=== PATIENT | female | born 2000 | race Caucasian/White ===

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

== ENCOUNTER 2020-03-25 16:20 | Emergency (ER) | payer OTHER ==
[2020-03-25 16:44] VITALS: BP 130/87; PULSE 71; RESP 18; TEMP 98.5
[2020-03-25] MEDS ORDERED: IBUPROFEN 600 MG TAB PO STA (16:54)
--- NOTE | 2020-03-25 17:01 | ED ---
Abdominal Pain HPI - General Chief Complaint: Abdominal Pain Stated Complaint: Abd Pain Time Seen by Provider: 03/25/20 16:48 Source: patient Mode of arrival: ambulatory Limitations: no limitations - History of Present Illness Initial Comments: Patient is a 20-year-old female presenting to emergency Department with complaints of lower abdominal cramping that has been intermittent for months but seems to be worse today. Patient states she has been on the patch for control for the last 6 months, she has been on a new patch for the last week. P mercynain does not believe she is . Patient states she's been having some nausea with this cramping, no vomiting or diarrhea. She denies any fever or chills. She denies any specific area of pain, just generalized lower abdominal cramping. She denies increase in frequency or dysuria. She has no vaginal discharge, no vaginal bleeding. She has no further complaints at this time. Upon arrival to the ER her vitals are stable. - Related Data Home Medications Medication Instructions Recorded Confirmed Pnv 11/Iron Fum/Folic Acid/Om3 1 cap PO DAILY 09/27/18 10/11/19 [Virt-Barrie Dha Softgel] Previous Rx's Medication Instructions Recorded Ibuprofen [Motrin] 600 mg PO Q6HR PRN #30 tab 10/12/19 Sulfamethox-Tmp 800-160Mg [Bactrim 1 each PO Q12HR 5 Days #9 tab 03/25/20 Ds] Allergies Allergy/AdvReac Type Severity Reaction Status Date / Time cefuroxime axetil Allergy Swelling Verified 03/25/20 16:44 [From Ceftin] Review of Systems ROS Statement: Those systems with pertinent positive or pertinent negative responses have been documented in the HPI. ROS Other: All systems not noted in ROS Statement are negative. Past Medical History Past Medical History: No Reported History Additional Past Medical History / Comment(s): OB history: First was a vaginal delivery. This is her second . Blood type O+, antibody is n egative, rubella immune, hepatitis B negative, GBS negative, HIV nonreactive, RPR nonreactive. Further details of her obstetric history above. History of Any Multi-Drug Resistant Organisms: None Reported Past Surgical History: Tonsillectomy Additional Past Surgical History / Comment(s): right eye surgery 2005 Past Anesthesia/Blood Transfusion Reactions: No Reported Reaction Past Psychological History: Bipolar Smoking Status: Current every day smoker Past Alcohol Use History: None Reported Past Drug Use History: None Reported - Past Family History Mother Family Medical History: Congestive Heart Failure (CHF), Diabetes Mellitus General Exam - General Exam Comments Initial Comments: GENERAL: Patient is well-developed and well-nourished. Patient is nontoxic and in no acute distress. HEAD: Atraumatic, normocephalic. EYES: Pupils equal round and reactive to light, extraocular movements intact, sclera anicteric, conjunctiva are normal. Eyelids were unremarkable. ENT: TMs normal, nares patent, oropharynx clear without exudates. Moist mucous membranes. NECK: Normal range of motion, supple without lymphadenopathy or JVD. LUNGS: Unlabored respirations. Breath sounds clear to auscultation bilaterally and equal. No wheezes rales or rhonchi. HEART: Regular rate and rhythm without murmurs, rubs or gallops. ABDOMEN: Mild discomfort with palpation of the suprapubic area, lower abdomen, no specific area pain. Soft, normoactive bowel sounds. No guarding, no rebound. No masses appreciated. : Deferred MUSCULOSKELETAL: Normal extremities with adequate strength and normal range of motion, no pitting or edema. No clubbing or cyanosis. NEUROLOGICAL: Patient is alert and oriented x 3. Motor and sensory are also intact. Symmetrical smile. Normal speech, normal gait. PSYCH: Normal mood, normal affect. SKIN: Warm, Dry, normal turgor, no rashes or lesions noted. Limitations: no limitations Course Vital Signs 03/25/20 16:40 Temperature 98.5 F Pulse Rate 71 Respiratory 18 Rate Blood Pressure 130/87 O2 Sat by Pulse 98 Oximetry Medical Decision Making - Medical Decision Making Patient is a 20-year-old female here for lower abdominal cramping that has been intermittent for the last 4-5 months, worse the last few days. Her vitals are stable, she is been afebrile. No specific area of abdominal pain just cramping. Patient's urine does show signs of UTI with multiple wbc's, urine culture is p ending. Urine hCG is not detected. I discussed these findings with the patient. Patient states she has had a history of UTIs in the past and this does feel similar. Patient does have an ALLERGY to Ceftin, I will start her on Bactrim, first dose given in the ER. I will send the rest for prescription to the pharmacy. Patient can follow up with her PCP if symptoms persist. Return parameters were discussed with the patient she verbalized understanding. - Lab Data Lab Results 03/25/20 03/25/20 Range/Units 16:51 16:51 Urine Color Yellow Urine Appearance Cloudy H (Clear) Urine pH 6.5 (5.0-8.0) Ur Specific [place] 1.028 (1.001-1.035) Urine Protein 3+ H (Negative) Urine Glucose (UA) Negative (Negative) Urine Ketones Negative (Negative) Urine Blood Negative (Negative) Urine Nitrite Negative (Negative) Urine Bilirubin Negative (Negative) Urine Urobilinogen 2.0 (<2.0) mg/dL Ur Leukocyte Esterase Negative (Negative) Urine RBC 6 H (0-5) /hpf Urine WBC 36 H (0-5) /hpf Ur Squamous Epith Cells 6 H (0-4) /hpf Urine Bacteria Rare H (None) /hpf Hyaline Casts 12 H (0-2) /lpf Urine Mucus Many H (None) /hpf Urine HCG, Qual Not Detected (Not Detectd) Disposition Clinical Impression: UTI (urinary tract infection), Bilateral lower abdominal cramping Disposition: HOME SELF-CARE Condition: Stable Instructions (If sedation given, give patient instructions): Urinary Tract Infection in Women (ED) Additional Instructions: Please return to the Emergency Department if symptoms worsen or any other concerns. Urinalysis today shows a UTI. Please take antibiotic as prescribed. May use ibuprofen for discomfort. Follow-up with your PCP. Prescriptions: Sulfamethox-Tmp 800-160Mg [Bactrim Ds] 1 each PO Q12HR 5 Days #9 tab Is patient prescribed a controlled substance at d/c from ED?: No Referrals: Reji Benjamin DO [Primary Care Provider] - 1-2 days
[2020-03-25 17:10] LABS: Appearance,Urine Cloudy (Clear); Bacteria,Urine Rare /hpf; Bilirubin,Urine Negative (Negative); Blood,Urine Negative (Negative); Color,Urine Yellow; Glucose,Urine (UA) Negative (Negative); Hyaline Casts,Urine 12 /lpf (0-2); Ketones,Urine Negative (Negative); Leukocyte Esterase,Urine Negative (Negative); Mucus,Urine Many /hpf; Nitrite,Urine Negative (Negative); PH, Urine 6.5 (5.0-8.0); Protein,Urine 3+ (Negative); RBC,Urine 6 /hpf (0-5); Specific Gravity,Urine 1.028 (1.001-1.035); Squamous Epithelial Cell,Urine 6 /hpf (0-4); WBC,Urine 36 /hpf (0-5)
[2020-03-25] MEDS ORDERED: SULFAMETHOX-TMP 800-160MG 1 EACH TAB PO STA (17:29)
== END 2020-03-25 17:37 | disposition home or self-care (01) ==
LOC: EC 16:20
DX: N39.0 Urinary tract infection, site not specified (principal); R10.32 Left lower quadrant pain; R10.31 Right lower quadrant pain; F17.200 Nicotine dependence, unspecified, uncomplicated; Z88.1 Allergy status to other antibiotic agents
CPT/HCPCS: 81001; 81025; 87086; 99284

== ENCOUNTER → 2020-12-03 | Outpatient (CLI) | payer OTHER ==
--- NOTE | 2020-12-03 12:47 | US ---
EXAMINATION TYPE: Transabdominal DATE OF EXAM: 12/03/2020 7:18 AM COMPARISON: NONE CLINICAL HISTORY: Z36.87 confirm dates. Dates EXAM PERFORMED: Transabdominal (TA) EXAM MEASUREMENTS: GESTATIONAL AGE / DATING Physician Established: Not yet established Dates by LMP: (9 weeks/3 days) EDC: 07/05/2021 Dates by First Scan: No previous this is first scan Dates by Current Scan for: ( 9 weeks/4 days) EDC: 07/04/2021 MATERNAL ANATOMY Uterus: 11.0 x 6.9 x 5.8 cm Right Ovary: 2.6 x 1.8 x 1.4 cm Left Ovary: 3.0 x 2.4 x 1.5 cm Post CDS / Adnexa: no free fluid Presence of free fluid: no Presence of corpus luteal cyst: no Presence of subchorionic bleed: no GESTATION / SURVEY CRL: 2.8 cm (9 weeks/4 days) MSD: seen, not measured Yolk Sac (normal less than 6mm): 3.6 mm Heart Rate: 168 bpm Rhythm: Normal IUP: Viable IUP Age Appropriate Anatomy Cord Insertion: Visualized Limbs: Visualized Date of LMP: 09/28/2020, Beta HcG (if available): Not available at this time Single live IUP measuring 9 weeks 4 days. IMPRESSION: 1. Single intrauterine gestation estimated at 9 weeks 4 days gestation based on crown-rump length. Ca rdiac activity measuring 168 bpm was observed during study.
== END | disposition home or self-care (01) ==
LOC: RADUSWWP 06:56
PROVIDERS: ATTEND Obstetrics & Gynecology
DX: Z3A.09 9 weeks gestation of pregnancy (principal)
CPT/HCPCS: 76801

== ENCOUNTER 2020-12-05 13:35 | Emergency (ER) | payer OTHER ==
[2020-12-05] MEDS ORDERED: SODIUM CHLORIDE 0.9% 2,000 ML IV STA (14:00)
[2020-12-05] MEDS ORDERED: METOCLOPRAMIDE 5 MG/ML 2 ML VIAL IVP STA (14:00)
[2020-12-05 14:24] LABS: Basophils # (A) 0.1 k/uL (0-0.2); Basophils % (A) 1 %; Eosinophils # (A) 0.3 k/uL (0-0.7); Eosinophils % (A) 3 %; HCT 40.3 % (34.0-46.0); HGB 13.9 gm/dL (11.4-16.0); Lymphocytes # (A) 1.7 k/uL (1.0-4.8); Lymphocytes % (A) 15 %; MCH 31.8 pg (25.0-35.0); MCHC 34.4 g/dL (31.0-37.0); MCV 92.6 fL (80.0-100.0); Mean Platelet Volume 9.3; Monocytes # (A) 0.6 k/uL (0-1.0); Monocytes % (A) 5 %; Neutrophils # (A) 8.9 k/uL (1.3-7.7); Neutrophils % (A) 76 %; Platelet Count 216 k/uL (150-450); RBC 4.36 m/uL (3.80-5.40); RDW 13.2 % (11.5-15.5); WBC 11.8 k/uL (4.0-11.0)
[2020-12-05 14:32] LABS: Appearance,Urine Cloudy (Clear); Bacteria,Urine Rare /hpf; Bilirubin,Urine Negative (Negative); Blood,Urine Negative (Negative); Color,Urine Yellow; Glucose,Urine (UA) Negative (Negative); Ketones,Urine Negative (Negative); Leukocyte Esterase,Urine Large (Negative); Mucus,Urine Many /hpf; Nitrite,Urine Negative (Negative); Protein,Urine 1+ (Negative); RBC,Urine 3 /hpf (0-5); Specific Gravity,Urine 1.025 (1.001-1.035); Squamous Epithelial Cell,Urine 15 /hpf (0-4); WBC,Urine 26 /hpf (0-5)
[2020-12-05 14:33] LABS: ALT 24 U/L (4-34); AST 21 U/L (14-36); African American GFR (CKD) >90 (>60 ml/min/1.73 sqM); Albumin 4.7 g/dL (3.5-5.0); Alkaline Phosphatase 59 U/L (38-126); Anion Gap 12 mmol/L; Blood Urea Nitrogen 10 mg/dL (7-17); Calcium 9.4 mg/dL (8.4-10.2); Carbon Dioxide 20 mmol/L (22-30); Chloride 106 mmol/L (98-107); Glucose 88 mg/dL (74-99); Non-African American GFR(CKD) >90 (>60 ml/min/1.73 sqM); Potassium 4.1 mmol/L (3.5-5.1); Sodium 138 mmol/L (137-145); Total Bilirubin 0.3 mg/dL (0.2-1.3); Total Protein 7.5 g/dL (6.3-8.2)
--- NOTE | 2020-12-05 14:58 | ED ---
General Adult HPI - General Chief complaint: Nausea/Vomiting/Diarrhea Stated complaint: 10Wks Preg/Nausea/Vomiting Time Seen by Provider: 12/05/20 13:47 Source: patient, RN notes reviewed Mode of arrival: ambulatory Limitations: no limitations - History of Present Illness Initial comments: 20-year-old female presents emergency apartment with chief complaint of nausea vomiting early . Patient is A0 states that she's been vomiting last few days. Patient denies any abdominal pain or complaints. She has seen her [employer]. She's had a prior ultrasound. Patient denies any other complaints. - Related Data Home Medications Medication Instructions Recorded Confirmed Pnv 11/Iron Fum/Folic Acid/Om3 1 cap PO DAILY 09/27/18 10/11/19 [Virt-Barrie Dha Softgel] Previous Rx's Medication Instructions Recorded Ibuprofen [Motrin] 600 mg PO Q6HR PRN #30 tab 10/12/19 Sulfamethox-Tmp 800-160Mg [Bactrim 1 each PO Q12HR 5 Days #9 tab 03/25/20 Ds] Amoxicillin/Potassium Clav 1 tab PO Q12HR #14 tab 12/05/20 [Augmentin 875-125 Tablet] Allergies Allergy/AdvReac Type Severity Reaction Status Date / Time cefuroxime axetil Allergy Swelling Verified 12/05/20 13:41 [From Ceftin] Review of Systems ROS Statement: Those systems with pertinent positive or pertinent negative responses have been documented in the HPI. ROS Other: All systems not noted in ROS Statement are negative. Past Medical History Past Medical History: No Reported History Additional Past Medical History / Comment(s): OB history: First was a vaginal delivery. This is her second . Blood type O+, antibody is negative, rubella immune, hepatitis B negative, GBS negative, HIV nonreactive, RPR nonreactive. Further details of her obstetric history above. History of Any Multi-Drug Resistant Organisms: None Reported Past Surgical History: Tonsillectomy Additional Past Surgical History / Comment(s): right eye surgery 2006 Past Anesthesia/Blood Transfusion Reactions: No Reported Reaction Past Psychological History: Bipolar Smoking Status: Current every day smoker Past Alcohol Use History: None Reported Past Drug Use History: None Reported - Past Family History Mother Family Medical History: Congestive Heart Failure (CHF), Diabetes Mellitus General Exam Limitations: no limitations General appearance: alert, in no apparent distress Head exam: Present: atraumatic, normocephalic, normal inspection Eye exam: Present: normal appearance, PERRL, EOMI. Absent: scleral icterus, conjunctival injection, periorbital swelling Respiratory exam: Present: normal lung sounds bilaterally. Absent: respiratory distress, wheezes, rales, rhonchi, stridor Cardiovascular Exam: Present: regular rate, normal rhythm, normal heart sounds. Absent: systolic murmur, diastolic murmur, rubs, gallop, clicks GI/Abdominal exam: Present: soft, normal bowel sounds. Absent: distended, tenderness, guarding, rebound, rigid Course Vital Signs 12/05/20 13:39 Temperature 98.3 F Pulse Rate 84 Respiratory 16 Rate Blood Pressure 105/69 O2 Sat by Pulse 97 Oximetry Medical Decision Making - Medical Decision Making 20-year-old presented for nausea vomiting patient is well hydrated, given a dose of antiemetics feels improved be discharged to condition patient does have some his urine tract infection will be discharged on Augmentin. - Lab Data Result diagrams: 12/05/20 14:17 12/05/20 14:17 Lab Results 12/05/20 12/05/20 12/05/20 Range/Units 14:17 14:17 14:17 WBC 11.8 H (4.0-11.0) k/uL RBC 4.36 (3.80-5.40) m/uL Hgb 13.9 (11.4-16.0) gm/dL Hct 40.3 (34.0-46.0) % MCV 92.6 (80.0-100.0) fL MCH 31.8 (25.0-35.0) pg MCHC 34.4 (31.0-37.0) g/dL RDW 13.2 (11.5-15.5) % Plt Count 216 (150-450) k/uL MPV 9.3 Neutrophils % 76 % Lymphocytes % 15 % Monocytes % 5 % Eosinophils % 3 % Basophils % 1 % Neutrophils # 8.9 H (1.3-7.7) k/uL Lymphocytes # 1.7 (1.0-4.8) k/uL Monocytes # 0.6 (0-1.0) k/uL Eosinophils # 0.3 (0-0.7) k/uL Basophils # 0.1 (0-0.2) k/uL Sodium 138 (137-145) mmol/L Potassium 4.1 (3.5-5.1) mmol/L Chloride 106 (98-107) mmol/L Carbon Dioxide 20 L (22-30) mmol/L Anion Gap 12 mmol/L BUN 10 (7-17) mg/dL Creatinine 0.39 L (0.52-1.04) mg/dL Est GFR (CKD-EPI)AfAm >90 (>60 ml/min/1.73 sqM) Est GFR (CKD-EPI)NonAf >90 (>60 ml/min/1.73 sqM) Glucose 88 (74-99) mg/dL Calcium 9.4 (8.4-10.2) mg/dL Total Bilirubin 0.3 (0.2-1.3) mg/dL AST 21 (14-36) U/L ALT 24 (4-34) U/L Alkaline Phosphatase 59 (38-126) U/L Total Protein 7.5 (6.3-8.2) g/dL Albumin 4.7 (3.5-5.0) g/dL Urine Color Yellow Urine Appearance Cloudy H (Clear) Urine pH 6.0 (5.0-8.0) Ur Specific [place] 1.025 (1.001-1.035) Urine Protein 1+ H (Negative) Urine Glucose (UA) Negative (Negative) Urine Ketones Negative (Negative) Urine Blood Negative (Negative) Urine Nitrite Negative (Negative) Urine Bilirubin Negative (Negative) Urine Urobilinogen 2.0 (<2.0) mg/dL Ur Leukocyte Esterase Large H (Negative) Urine RBC 3 (0-5) /hpf Urine WBC 26 H (0-5) /hpf Ur Squamous Epith Cells 15 H (0-4) /hpf Urine Bacteria Rare H (None) /hpf Urine Mucus Many H (None) /hpf Disposition Clinical Impression: UTI in , Vomiting during Disposition: HOME SELF-CARE Condition: Stable Instructions (If sedation given, give patient instructions): Acute Nausea and Vomiting (ED) Additional Instructions: Please return to the Emergency Department if symptoms worsen or any other concerns. Prescriptions: Amoxicillin/Potassium Clav [Augmentin 875-125 Tablet] 1 tab PO Q12HR #14 tab Is patient prescribed a controlled substance at d/c from ED?: No Referrals: Reji Benjamin DO [Primary Care Provider] - 1-2 days Time of Disposition: 15:05
[2020-12-05 16:27] VITALS: BP 107/74; PULSE 74; RESP 17; TEMP 98.2
== END 2020-12-05 15:30 | disposition home or self-care (01) ==
LOC: EC 13:35
DX: O21.9 Vomiting of pregnancy, unspecified (principal); O23.41 Unspecified infection of urinary tract in pregnancy, first trimester; F31.9 Bipolar disorder, unspecified; F17.200 Nicotine dependence, unspecified, uncomplicated; Z88.1 Allergy status to other antibiotic agents; Z90.89 Acquired absence of other organs; Z3A.10 10 weeks gestation of pregnancy
CPT/HCPCS: 99284; 96374; 36415; 80053; 85025; 81001; 87086; J2765

== ENCOUNTER → 2021-03-25 | Outpatient (CLI) | payer OTHER ==
[2021-03-25 17:57] LABS: HGB 10.9 g/dL (12.0-15.0); MCH 30.3 pg (27.0-32.0); MCHC 32.1 g/dL (32.0-37.0); MCV 94.4 fL (80.0-97.0); Mean Platelet Volume 12.4 fL (9.5-12.2); Platelet Count 207 X 10*3/uL (140-440); RDW 13.2 % (11.5-14.5); WBC 11.55 X 10*3/uL (4.50-10.00)
== END | disposition home or self-care (01) ==
LOC: LABWHC1 10:54
PROVIDERS: ATTEND Obstetrics & Gynecology
DX: Z34.82 Encounter for supervision of other normal pregnancy, second trimester (principal); Z3A.00 Weeks of gestation of pregnancy not specified
CPT/HCPCS: 36415; 82950; 85027

== ENCOUNTER 2021-05-31 15:45 | Inpatient (IN) | payer OTHER ==
[2021-05-31] MEDS: BETAMET ACET-BETAMETH SOD PHOS 6 MG/ML MDV IM SCH (16:45)
[2021-05-31] MEDS ORDERED: TERBUTALINE 1 MG/ML VIAL SQ PRN (16:59)
[2021-05-31] MEDS ORDERED: CARBOPROST TROMETHAMINE 250 MCG/ML 1 ML AMP IM PRN (16:59)
[2021-05-31] MEDS ORDERED: METHYLERGONOVINE 0.2 MG/ML 1 ML AMP IM PRN (16:59)
[2021-05-31] MEDS ORDERED: OXYTOCIN 10 UNIT/ML 1 ML VIAL IM PRN (16:59)
[2021-05-31] MEDS ORDERED: LIDOCAINE 1% (PF) 10 MG/ML (30 ML SDV) SQ PRN (16:59)
--- NOTE | 2021-05-31 16:59 | P.HPOB ---
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 This she is followed by Dr. Kumar and has overall been doing well. She has had no competitions or problems and pertinent labs fluid O+ blood type, Rh and it was negative, rubella is immune, hepatitis B surface antigen is negative RPR is negative and HIV is negative. Her group B strep is not completed. She relates that over the last approximately 24-hour she has noticed a small amount of discharge and liquid coming from her vagina. She had an ultrasound in our office showing an amniotic fluid index of 4.6. She was sent over by her primary bleach maker Dr. Kumar for further evaluation. A an amnisure was done but was negative. This does not exclude the possibility of rupture however. In looking at the monitor she has a category 1 tracing with a reactive nonstress test. She does have contractions every approximately 40s to 5 minutes but she relates that they're not painful initially the plan was to give her steroids for lung maturity and monitored her with repeat ultrasound, however, on digital exam she is noted be dilated to 5-1/2 cm 90% effaced and -2 station. She is being admitted for active labor. We'll provide initial dose of Celestone with expected second dose if possible in 12 hours. We'll also provide IV Anaprox for group B strep prophylaxis. And we will plan to not augment any labor unless further changes noted. If she gets to beyond 6- 7 cm likely will try and do artificial rupture membranes as a bag is noted on digital exam. We will make sure special care nursery was present for delivery. All the questions are answered for her at this time and will proceed cautiously with expected vaginal delivery. Past Medical History Past Medical History: No Reported History Additional Past Medical History / Comment(s): OB history: First was a vaginal delivery. This is her second . Blood type O+, antibody is negative, rubella immune, hepatitis B negative, GBS negative, HIV nonreactive, RPR nonreactive. Further details of her obstetric history above. History of Any Multi-Drug Resistant Organisms: None Reported Past Surgical History: Tonsillectomy Additional Past Surgical History / Comment(s): right eye surgery 2005 Past Anesthesia/Blood Transfusion Reactions: No Reported Reaction Past Psychological History: Bipolar Smoking Status: Current every day smoker Past Alcohol Use History: None Reported Past Drug Use History: None Reported - Past Family History Mother Family Medical History: Congestive Heart Failure (CHF), Diabetes Mellitus Medications and Allergies Home Medications Medication Instructions Recorded Confirmed Type RX: Pnv 11/Iron Fum/Folic Acid/Om3 1 cap PO DAILY 09/27/18 10/11/19 History [Virt-Barrie Dha Softgel] RX: Ibuprofen [Motrin] 600 mg PO Q6HR PRN #30 tab 10/12/19 Rx Sulfamethox-Tmp 800-160Mg [Bactrim 1 each PO Q12HR 5 Days #9 tab 03/25/20 Rx Ds] Amoxicillin/Potassium Clav 1 tab PO Q12HR #14 tab 12/05/20 Rx [Augmentin 875-125 Tablet] Allergies Allergy/AdvReac Type Severity Reaction Status Date / Time cefuroxime axetil Allergy Swelling Verified 05/31/21 16:41 [From Ceftin] Exam Osteopathic Statement: *. No significant issues noted on an osteopathic structural exam other than those noted in the History and Physical/Consult. Intake and Output 05/31/21 05/31/21 05/31/21 06:59 14:59 22:59 Other: Weight 76.296 kg - OBG Physical Exam Breast: both: normal (no masses) Abdomen: bowel sounds normal, no diffuse tenderness, no bruit present, no guarding noted, no hepatomegaly, no splenomegaly, no mass Vulva: both: normal Vagina: normal moisture, no discharge Cervix: no lesion, no discharge Uterus: normal size, normal contour Adnexa: both: normal Anus/Rectum: normal perianal skin, no rectal mass, no hemorrhoids, heme negative
[2021-05-31] MEDS: LACTATED RINGERS 1,000 ML IV SCH (17:00)
[2021-05-31] MEDS ORDERED: AMPICILLIN 2,000 MG in SODIUM CHLORIDE 0.9% 100 ML IVPB STA (17:10)
[2021-05-31 18:46] LABS: Basophils # (A) 0.1 k/uL (0-0.2); Basophils % (A) 0 %; Eosinophils # (A) 0.1 k/uL (0-0.7); Eosinophils % (A) 1 %; HGB 12.6 gm/dL (11.4-16.0); Lymphocytes # (A) 1.7 k/uL (1.0-4.8); Lymphocytes % (A) 15 %; MCH 31.3 pg (25.0-35.0); MCHC 34.2 g/dL (31.0-37.0); MCV 91.5 fL (80.0-100.0); Mean Platelet Volume 13.4; Monocytes # (A) 0.5 k/uL (0-1.0); Monocytes % (A) 4 %; Neutrophils # (A) 9.1 k/uL (1.3-7.7); Neutrophils % (A) 78 %; Platelet Count 160 k/uL (150-450); RBC 4.04 m/uL (3.80-5.40); RDW 13.7 % (11.5-15.5); WBC 11.6 k/uL (3.8-10.6)
[2021-05-31] MEDS ORDERED: AMPICILLIN 1,000 MG in SODIUM CHLORIDE 0.9% 50 ML IVPB SCH (21:00)
[2021-05-31] MEDS ORDERED: OXYTOCIN 30 UNITS/500 ML NS 30 UNIT in SALINE 1 500ML.BAG IV SCH (21:08)
[2021-05-31] MEDS ORDERED: diphenhydrAMINE 25 MG CAP PO PRN (21:14)
[2021-05-31] MEDS ORDERED: diphenhydrAMINE 50 MG CAP PO PRN (21:14)
[2021-05-31] MEDS ORDERED: diphenhydrAMINE 50 MG/ML 1 ML VIAL IVP PRN ×2 (21:14)
[2021-05-31] MEDS ORDERED: LANOLIN CREAM 5 GM TUBE TOPICAL PRN (21:14)
[2021-05-31] MEDS ORDERED: SIMETHICONE 80 MG CHEWABLE PO PRN (21:14)
[2021-05-31] MEDS ORDERED: ZOLPIDEM 5 MG TAB PO PRN (21:14)
[2021-05-31] MEDS ORDERED: HYDROCORTISONE 2.5% RECTAL CREAM 30 GM TUBE RECTAL PRN (21:14)
[2021-05-31] MEDS ORDERED: BENZOCAINE/MENTHOL SPRAY 1 GM/SPRAY AEROSOL TOPICAL PRN (21:14)
--- NOTE | 2021-05-31 21:16 | P.PROBDLV ---
Vaginal Delivery Note - . Vaginal Delivery Note: Breast complete and pushing with spontaneous vaginal delivery of a viable male over a first-degree perineal laceration. Following delivery of the head very close attention was paid to having her push were gently to try and limit the amount of pressure on the baby's head as it came out which was accomplished very well. Once baby's head was delivered anterior posterior shoulders were easily delivered with gentle downward upper traction followed by the remainder the baby. Mouth nares were then bulb suctioned and baby was placed on mother's abdomen where the umbilical cord was allowed to pulsate for 1 minute prior to clamping and cutting. Once this was accomplished nursery personnel was present and assumed care throughout. scores are 9 and 9 at one and 5 minutes respectively and the weight was 5 lbs. 4 oz. Placenta was delivered intact without difficulty and then 3-0 Vicryl was used to reapproximate the laceration following 1% Xylocaine for analgesia. Both mother and baby are stable following delivery, however, baby is in special care nursery due to 35 weeks gestation delivery.
[2021-05-31] MEDS: IBUPROFEN 600 MG TAB PO SCH (22:42)
[2021-06-01] MEDS: LACTATED RINGERS 1,000 ML IV SCH ×2 (00:59→15:46)
[2021-06-01] MEDS: IBUPROFEN 600 MG TAB PO SCH ×3 (04:25→16:05)
[2021-06-01] MEDS: SENNOSIDES-DOCUSATE SODIUM 1 EACH TAB PO SCH ×2 (08:16→21:17)
[2021-06-01] MEDS: ACETAMINOPHEN TAB 325 MG TAB PO PRN ×2 (08:16→21:10)
[2021-06-01] MEDS ORDERED: ONDANSETRON 4 MG TAB PO PRN (10:39)
--- NOTE | 2021-06-01 10:39 | P.PNOBGVD ---
Subjective - Subjective Principal diagnosis: day 1 Interval history: Patient is doing very well this morning. She is ambulating and voiding. She is tolerating a diet but does complain of some nausea. We'll add Zofran by mouth to her medications. Patient reports: Reports appetite normal, Reports voiding normally, Reports pain well controlled, Reports ambulating normally [place]: in NICU Objective - Latest Vital Signs Latest vital signs: Vital Signs Temp Pulse Resp BP Pulse Ox 06/01/21 08:00 98 F 56 L 16 108/56 06/01/21 04:00 97.9 F 56 L 14 93/51 97 05/31/21 23:17 65 16 125/71 05/31/21 22:47 98.3 F 65 16 118/65 05/31/21 22:10 62 16 121/71 05/31/21 21:55 66 16 119/69 05/31/21 21:40 65 16 118/65 05/31/21 21:25 70 16 114/63 05/31/21 21:10 70 16 124/67 05/31/21 17:03 97.8 F 65 16 115/62 05/31/21 16:40 97.8 F 65 16 120/60 Intake and Output 05/31/21 06/01/21 06/01/21 22:59 06:59 14:59 Intake Total 400 500 Output Total 100 Balance 400 400 Intake: Intake, IV Titration 500 Amount Oxytocin 30 Units/500 ml 500 Ns 30 unit In Saline 1 500ml.bag @ Per Protocol IV .Q0M [facility] Rx#:[id number] Oral 400 Output: Estimated Blood Loss 100 Other: # Voids 1 Weight 76.296 kg - Exam Lungs: bilateral: normal Chest: Normal S1, Normal S2 Extremities: Present: normal Abdomen: Present: normal appearance, soft Uterus: Present: normal, firm - Labs Labs: Abnormal Lab Results - Last 24 Hours (Table) 05/31/21 Range/Units 17:00 WBC 11.6 H (3.8-10.6) k/uL Neutrophils # 9.1 H (1.3-7.7) k/uL
[2021-06-01] MEDS: BETAMET ACET-BETAMETH SOD PHOS 6 MG/ML MDV IM SCH (15:45)
[2021-06-02] MEDS: IBUPROFEN 600 MG TAB PO SCH ×4 (01:07→14:52)
[2021-06-02 01:18] VITALS: RESP 16
--- NOTE | 2021-06-02 08:58 | P.DS ---
Providers Date of admission: 05/31/21 16:43 Expected date of discharge: 06/02/21 Attending physician: Elif Kumar Primary care physician: Stated None Hospital Course: [place] is doing very well day 2. She is ambulating, voiding and tolerating her diet. She voices no complaint. Vital signs are stable and afebrile. Heart is regular, lungs are clear, extremities without pain. Abdomen soft and uterus is firm below the umbilicus. Lochia is reported light. Assessment day 2. Plan discharged home follow up with Dr. Kumar in 6 weeks. No prescriptions are required for patient and discharge instructions thoroughly reviewed been reviewed. She is stable for discharge this time. Patient Condition at Discharge: Good Plan - Discharge Summary New Discharge Prescriptions: No Action Pnv 11/Iron Fum/Folic Acid/Om3 [Virt-Barrie Dha Softgel] 1 cap PO DAILY Ibuprofen [Motrin] 600 mg PO Q6HR PRN #30 tab PRN Reason: Mild Pain Or Fever >= 100.5 Sulfamethox-Tmp 800-160Mg [Bactrim Ds] 1 each PO Q12HR 5 Days #9 tab Amoxicillin/Potassium Clav [Augmentin 875-125 Tablet] 1 tab PO Q12HR #14 tab Discharge Medication List Pnv 11/Iron Fum/Folic Acid/Om3 [Virt-Barrie Dha Softgel] 1 cap PO DAILY 09/27/18 [History] Ibuprofen [Motrin] 600 mg PO Q6HR PRN #30 tab 10/12/19 [Rx] Sulfamethox-Tmp 800-160Mg [Bactrim Ds] 1 each PO Q12HR 5 Days #9 tab 03/25/20 [Rx] Amoxicillin/Potassium Clav [Augmentin 875-125 Tablet] 1 tab PO Q12HR #14 tab 12/05/20 [Rx] Follow up Appointment(s)/Referral(s): Elif Kumar DO [Doctor of Osteopathic Medicine] - 6 Weeks Activity/Diet/Wound Care/Special Instructions: No heavy lifting, limit stairs and driving, and pelvic rest. If any high temperatures, heavy bleeding, or severe pain call our office Discharge Disposition: HOME SELF-CARE
[2021-06-02] MEDS: SENNOSIDES-DOCUSATE SODIUM 1 EACH TAB PO SCH (09:10)
[2021-06-02 17:56] VITALS: BP 126/80; PULSE 80; TEMP 98.5
== END 2021-06-02 19:35 | disposition home or self-care (01) | DRG 807 ==
LOC: FBPOP 15:45 → 4FBP 16:43
PROVIDERS: ADMIT Obstetrics & Gynecology; ATTEND Obstetrics & Gynecology
PROC: 10E0XZZ Delivery of Products of Conception, External Approach (ICD-10-PCS; principal; 2021-05-31)
PROC: 0HQ9XZZ Repair Perineum Skin, External Approach (ICD-10-PCS; 2021-05-31)
PROC: 4A0HXCZ Measurement of Products of Conception, Cardiac Rate, External Approach (ICD-10-PCS; 2021-05-31)
PROC: 10907ZC Drainage of Amniotic Fluid, Therapeutic from Products of Conception, Via Natural or Artificial Opening (ICD-10-PCS; 2021-05-31)
DX: O26.893 Other specified pregnancy related conditions, third trimester (principal); Z37.0 Single live birth; O60.14X0 Preterm labor third trimester with preterm delivery third trimester, not applicable or unspecified; O99.334 Smoking (tobacco) complicating childbirth; O70.0 First degree perineal laceration during delivery; O99.344 Other mental disorders complicating childbirth; F31.9 Bipolar disorder, unspecified; F17.210 Nicotine dependence, cigarettes, uncomplicated; Z3A.35 35 weeks gestation of pregnancy; Z88.8 Allergy status to other drugs, medicaments and biological substances; Z67.41 Type O blood, Rh negative
CPT/HCPCS: 59025; 85025; 86850; 86900; 86901; 88307; 99213